=== PATIENT | male | born 1990 | race Caucasian/White ===

== ENCOUNTER 2021-05-13 02:49 | Emergency (ER) | payer BC ==
[2021-05-13] MEDS ORDERED: predniSONE 10 MG TAB ONE (03:50)
[2021-05-13] MEDS ORDERED: predniSONE 20 MG TAB ONE (03:50)
[2021-05-13] MEDS ORDERED: Colchicine 0.6 MG TAB ONE ×2 (03:50→03:58)
== END 2021-05-13 04:03 | disposition home or self-care (01) ==
LOC: MADERS 02:49
DX: M10.9 Gout, unspecified (principal)
CPT/HCPCS: 99283; J7512